=== PATIENT | male | born 1935 | race Caucasian/White ===

== ENCOUNTER → 2017-04-04 | Day surgery (SDC) | payer OTHER ==
[2017-03-22 10:48] VITALS: Ht 172.7 cm; Wt 96.4 kg
[~2017-04-04] VITALS: Ht 172.7 cm; Wt 96.4 kg
[~2017-04-04] MED LIST: 500ML BSS 0.3ML EPI 1:1000PF IRRIG ONE; ACETAMINOPHEN 325 MG TAB PO PRN; ALLO100T PO; AMVISC PLUS 0.8ML SYRINGE INT OCU ONE; ASPCH81X PO; ATROPINE SULFATE 0.1 MG/ML 5ML SYR IV PRN; BSS FLUSH ONE; ENDOCOAT 0.85ML SYRINGE INT OCU ONE; EpHEDrine SULFATE INJ 50 MG/ML AMP IV PRN; EpINEphrine INJ 1MG/ML AMP 1 MG/ML AMP ONE; FAMO20TA11 PO; FENTANYL CITRATE INJ 50 MCG/1 ML 2 ML VIAL ONE; LACTATED RINGER'S 1000ML 500 ML IV SCH; LIDOCAINE 4% OP SOLN DROP CHARGE ONE; LIDOCAINE 4% OP SOLN DROP CHARGE OPL SCH; LIDOCAINE HCL 1% MPF 2 ML VIAL ONE; LISI-725 PO; MIDAZOLAM HCL 1 MG/ML 2ML VIAL ONE; MIX: 4ML BSS 1ML EPI 1:1000 PF TOP ONE; MOXIFLOXACIN OPH SOLN PER DROP CHARGE ONE; POVIDONE-IODINE OP SOLN 30 ML BTL ONE; PROPARACAINE 0.5% OP SOLN PER DROP CHARGE OPL SCH; TAMS0.4C38 PO; TOBRAMYCIN/DEXAMETHASONE OPH OINT PER APPLN CHARGE ONE
[2017-04-04] MEDS: PHENYLEPHRINE HCL 2.5% OP SOLN PER DROP CHARGE OPL SCH ×3 (08:40→08:49)
[2017-04-04] MEDS: TROPICAMIDE 1% OP SOLN PER DROP CHARGE OPL SCH ×3 (08:41→08:51)
[2017-04-04] MEDS: CYCLOPENTOLATE HCL 1% OP SOLN PER DROP CHARGE OPL SCH ×3 (08:42→08:52)
[2017-04-04] MEDS: MOXIFLOXACIN OPH SOLN PER DROP CHARGE OPL SCH ×3 (08:43→08:52)
--- NOTE | 2017-04-04 09:00 | History & Physical Bridge - SC ---
H&P Re-Evaluation Bridge Note: I have examined the patient, reviewed the History & Physical and in the interval since the performance of the History & Physical I have noted the following changes of clinical significance: No changes noted
--- NOTE | 2017-04-04 10:08 | [facility] Post Operative Brief Note ---
Immediate Operative Summary Operative Date Apr 04, 2017. Pre-Operative Diagnosis Cataract Left Eye Post-Operative Diagnosis Same Procedure(s) Performed Left Cataract Phacoemulsification With Intraocular Lens Implant Surgeon Dr. Beach Retail Salesman Surgeon(s) None Estimated Blood Loss 0 Findings left cataract Specimens 0 Complication(s) None Disposition
--- NOTE | 2017-04-04 10:09 | [facility] Operative Report ---
Operative Report Date of Service Apr 04, 2017. Operative Report DATE OF OPERATION: 04/04/17 PREOPERATIVE DIAGNOSIS: Senile nuclear cataract, left eye POSTOPERATIVE DIAGNOSIS: Senile nuclear cataract, left eye PROCEDURE PERFORMED: Phacoemulsification with intraocular lens implantation, left eye SURGEON: Dr. Milo Beach ANESTHESIA: Topical with 1% intracameral lidocaine and monitored anesthesia care COMPLICATIONS: None DESCRIPTION OF PROCEDURE: After positively identifying the patient both verbally and by wristband in the preoperative area, the left eye was marked as the operative eye. The patient was then brought back to the operating room by the anesthesia and nursing staff where they were given a drop of Lidocaine and betadine into the operative eye. They were then sterilely prepped and draped in the standard fashion typical for ophthalmic surgery. Steri-strips were placed along the upper eyelids to keep the lashes back, and a lid speculum was placed into the operative eye. At this point, a documented time out was performed with members of the ophthalmology, nursing, and anesthesia staffs all agreeing upon the correct patient, correct location for surgery, correct procedure, and correct type and power of intraocular lens to be implanted. The microscope was then swung into position. First, a paracentesis wound was made using a sideport blade. Then, in sequence, 1% preservative-free lidocaine followed by Endocoat viscoelastic was injected into the anterior chamber. Next , the main incision was made with a keratome blade in triplanar fashion. A sharp cystotome was introduced into the eye and used to create a tear in the anterior capsule, which was directed into a continuous curvilinear capsulorrhexis using Utrata forceps. Hydrodissection was then performed with BSS on a flat-tip cannula. Next, the phacoemulsification handpiece was introduced into the eye and used to remove the nucleus in a [id number] fashion. This was done without complication and then the irrigation-aspiration handpiece was introduced into the eye and used to remove all remaining cortical and epinuclear material. Amvisc was then injected into the anterior chamber as well as into the capsular bag and using the lens injector system, an MX60 22.0 D lens, serial number [id number], and expiration date 11/2019 was injected into the capsular bag and rotated into the correct position. Next, the irrigation- aspiration handpiece was used to remove all remaining Amvisc. BSS was used to hydrate the main wound, and then BSS was injected into the paracentesis site to reach physiologic pressure and then the main wound was checked and found to be watertight. The patient was given drops of Vigamox and Tobradex ointment into the operative eye, and then the surrounding area was cleaned and dried. A clear plastic shield was placed over the eye and the patient was then sat up and taken from the operating room by the anesthesia staff having tolerated the procedure well and suffering no complications. DISPOSITION: The patient was returned to the recovery room in stable condition. I attest to the content of the Intraoperative Record and any orders documented therein. Any exceptions are noted below.
[2017-04-04 10:10] VITALS: TEMP 36.5
--- NOTE | 2017-04-04 10:10 | Discharge Instructions-SurgCtr ---
Discharge Instructions Date of Service Apr 04, 2017. Visit Reason for Visit: Cataract Left Eye Discharge Discharge Diagnosis / Problem: left cataract Discharge Goals Goal(s): Decrease discomfort, Improve function Activity Recommendations Activity Limitations: as noted below Anesthesia . Post Anesthesia Instructions: If you have had General Anesthesia or IV Sedation: * Do not drive today. * Resume driving when surgeon permits. * Do not make important decisions or sign legal documents today. * Call surgeon for: 1. Temperature elevations greater than 101 degrees F. 2. Uncontrollable pain. 3. Excessive bleeding. 4. Persistent nausea and vomiting. 5. Medication intolerance (nausea, vomiting or rash). * For nausea and vomiting use only clear liquids such as: tea, soda, bouillon until nausea subsides, then gradually increase diet as tolerated. * If you have any concerns or questions, call your surgeon's office. If physician is unavailable and it is an emergency, call 911 or go to the nearest emergency room. . Instructions / Follow-Up Instructions / Follow-Up ACTIVITY RECOMMENDATIONS: * Light activities. * You may walk outside, read, watch television. * You may notice redness on the white part of the eye and some blurry vision - this is normal. MEDICATIONS: Resume previous medications unless instructed otherwise by your surgeon. Start all eye drops at 12 pm today: * Eye drops (today): Prednisone - one drop in operative eye every 2 hours while awake Polytrim - one drop in operative eye every 2 hours while awake Bromfenac - one drop in operative eye daily SPECIAL CARE INSTRUCTIONS: * Tape plastic shield over eye to sleep at night. Call your doctor at with any concerns or problems. FOLLOW UP VISIT: Follow-up with Dr Beach at [facility] as scheduled. Diet Recommendations Home Diet: no limitations Procedures Procedures Performed: Left Cataract Phacoemulsification With Intraocular Lens Implant Pending Studies Studies pending at discharge: no Medical Emergencies . Who to Call and When: Medical Emergencies: If at any time you feel your situation is an emergency, please call 911 immediately. . Non-Emergent Contact Non-Emergency issues call your: Surgeon . . "Provider Documentation" section prepared by Milo Beach. .
[2017-04-04 10:29] VITALS: BP 130/84; PULSE 67; O2SAT 96
--- NOTE | 2017-04-04 10:35 | Anesthesiology Progress Note ---
Anesthesia Post Op Note Date & Time Apr 04, 2017 at 10:34 Vital Signs Pain Intensity: 0 Vital Signs Past 12 Hours Date Time Temp Pulse Resp B/P (MAP) Pulse Ox O2 Delivery O2 Flow Rate FiO2 04/04/17 10:29 67 16 130/84 (99) 96 Room Air 04/04/17 10:10 36.5 57 16 154/81 (105) 95 Room Air 04/04/17 08:31 36.5 66 16 133/73 (93) 95 Room Air Notes Mental Status: alert / awake / arousable, participated in evaluation Nausea / Vomiting: adequately controlled Pain: adequately controlled Airway Patency, RR, SpO2: stable & adequate BP & HR: stable & adequate Hydration State: stable & adequate Anesthetic Complications: no major complications apparent Anesthetic Complications: Patient was cooperative during the procedure, but experienced a significant amount of pain not relieved by narcotics during the case. Comfortable in PACU and without complaints. Dr. Beach and patient requesting second eye be done under [place].
== END | disposition home or self-care (01) ==
LOC: X.SURG 08:04
PROVIDERS: ATTEND Ophthalmology
DX: H25.12 Age-related nuclear cataract, left eye (principal); I10 Essential (primary) hypertension; G47.33 Obstructive sleep apnea (adult) (pediatric); M19.90 Unspecified osteoarthritis, unspecified site; Z68.32 Body mass index [BMI] 32.0-32.9, adult; Z90.5 Acquired absence of kidney; Z88.1 Allergy status to other antibiotic agents; Z87.891 Personal history of nicotine dependence; Z90.49 Acquired absence of other specified parts of digestive tract; Z96.652 Presence of left artificial knee joint; Z85.51 Personal history of malignant neoplasm of bladder; Z85.528 Personal history of other malignant neoplasm of kidney; Z85.828 Personal history of other malignant neoplasm of skin; Z98.890 Other specified postprocedural states

== ENCOUNTER 2020-04-05 12:27 | Observation (INO) ==
[~2020-04-05 12:27] MED LIST changes: -500ML BSS 0.3ML EPI 1:1000PF IRRIG ONE; -ACETAMINOPHEN 325 MG TAB PO PRN; -ALLO100T PO; -AMVISC PLUS 0.8ML SYRINGE INT OCU ONE; -ASPCH81X PO; -ATROPINE SULFATE 0.1 MG/ML 5ML SYR IV PRN; -BSS FLUSH ONE; -ENDOCOAT 0.85ML SYRINGE INT OCU ONE; -EpHEDrine SULFATE INJ 50 MG/ML AMP IV PRN; -EpINEphrine INJ 1MG/ML AMP 1 MG/ML AMP ONE; -FAMO20TA11 PO; -FENTANYL CITRATE INJ 50 MCG/1 ML 2 ML VIAL ONE; +HEPARIN (PORCINE) 1000 UNIT/ML 10 ML (CATH LAB USE ONLY) ONE; -LACTATED RINGER'S 1000ML 500 ML IV SCH; -LIDOCAINE 4% OP SOLN DROP CHARGE ONE; -LIDOCAINE 4% OP SOLN DROP CHARGE OPL SCH; -LIDOCAINE HCL 1% MPF 2 ML VIAL ONE; -LISI-725 PO; -MIX: 4ML BSS 1ML EPI 1:1000 PF TOP ONE; -MOXIFLOXACIN OPH SOLN PER DROP CHARGE ONE; +NITROGLYCERIN/D5W 100MCG/ML 20ML SYR ONE; -POVIDONE-IODINE OP SOLN 30 ML BTL ONE; -PROPARACAINE 0.5% OP SOLN PER DROP CHARGE OPL SCH; -TAMS0.4C38 PO; -TOBRAMYCIN/DEXAMETHASONE OPH OINT PER APPLN CHARGE ONE; +fentaNYL citrate 100 MCG/2 ML VIAL ONE; +niCARdipine HCL INJ 2.5 MG/ML 10 ML AMP ONE
--- NOTE | 2020-04-05 12:38 | Emergency Department Note ---
Impression & Plan ST elevation myocardial infarction (STEMI) of inferior wall ED Provider Note NAME: STEVEN REYNA AGE: 85 SEX: M : 1935 ARRIVES VIA: Ambulance INFORMANT: Patient ED PROVIDER(S): Alejandro Rasmussen DO CHIEF COMPLAINT: Chest pain HPI: Patient is an 85-year-old male who presents the ER for chest pain. He has been having exertional shortness of breath which has been present and worsening for several months. He started with chest pain yesterday morning. It is fairly constant. He saw his PCP today. Following having an abnormal EKG he was referred into [facility]. There he was found to have a STEMI. He was given aspirin, nitro and placed on a heparin drip after a bolus of 4000 units. They are initially trying to fly him to [facility] but due to weather they tried to transport via ground. He became chest pain-free and started hav ing chest pain again. Consequently called [facility] and he was accepted here in transfer by myself in discussion with Dr. Menendez. Pain is currently a 0 out of 10. Here he received 180 of Brilinta. ROS: See above HPI for pertinent positives & negatives. A total of 10 systems reviewed and were otherwise negative. PAST MEDICAL HISTORY:See Below PAST SURGICAL HISTORY:See Below FAMILY HISTORY:See Below SOCIAL HISTORY:See Below HOME MEDICATIONS:See Below ALLERGIES:See Below VITALS:See Below PHYSICAL EXAMINATION: GENERAL: Sitting up in bed, alert, well appearing, well nourished, no distress, non-toxic EYE EXAM: normal conjunctiva. OROPHARYNX: no exudate, no erythema, lips, buccal mucosa, and tongue normal and mucous membranes are moist NECK: supple, no nuchal rigidity, no adenopathy, non-tender LUNGS: Clear to auscultation. Normal chest wall mechanics HEART: no murmurs, S1 normal and S2 normal ABDOMEN: abdomen soft, non-tender, normo-active bowel sounds, no masses, no rebound or guarding. BACK: Back is symmetrical on inspection and there is no deformity, no midline tenderness, no CVA tenderness. SKIN: no rashes and no bruising UPPER EXTREMITIES: upper extremities are grossly normal. LOWER EXTREMITIES: No pitting edema. NEURO EXAM: Normal sensorium, cranial nerves II-XII grossly intact, normal speech, no gross weakness of arms, no gross weakness of legs. MEDICAL DECISION MAKING: Patient is a 5-year-old male who presented to the PCPs office for chest pain which started yesterday. From there he was transferred to [facility] and diagnosed with a STEMI and placed on heparin drip and bolus. [employer] was called and they attempted to fly to [facility] but due to weather was unsuccessful. He was initially chest pain-free and they were going to go by ambulance. He started having chest pain again and consequently they called our ER. I accepted the patient in transfer as our proximity was closer. I called Dr. Hare and prior to the patient's arrival we reviewed EKGs. STEMI alert was called. Upon arrival IV was established blood work is obtained. Labs showed no significant leukocytosis or anemia. INR was unremarkable. PTT was elevated at 78. BMP was unremarkable and troponin here was negative. It was positive at [facility] at 25. These labs did not result until the patient was already in the [facility]. Patient was already given Brilinta prior to arrival. Patient was taken emergently to the [facility] with her chest x-ray and additional blood work was obtained. Dr. Hare did evaluate him at bedside. Triage Nursing notes reviewed. Prior medical records reviewed Vital Signs: reviewed and remarkable for no significant abnormalities Differential diagnosis: Differential diagnoses includes but is not limited to acute coronary syndrome, myocardial infarction, pericarditis, pulmonary embolus, aortic dissection, pneumonia, pneumothorax, musculoskeletal, shingles, esophageal. ER treatment provided: See below Diagnostics interpreted by me: ECG: Sinus rhythm rate of [address] segment elevations in the inferior leads ST segment changes in the septal leads T wave flattening in aVL Normal QTC Cardiac Monitoring: An order was placed for continuous cardiac monitoring. The monitor shows a rate of 72 with sinus rhythm. Laboratory studies: As stated above and show below. Imaging studies: See below Consultation(s): Discussed with Dr. Hare prior to arrival reviewed EKG and was in agreement with STEMI alert [facility]. ED COURSE: Procedures: none Critical Care: I have personally spent 40 minutes of critical care time in the direct management of this patient. This includes bedside care, interpretation of diagnostic studies, and testing, discussion with consultants, patient, and family members, and other required patient management activities. This 40 minutes is in excess of all separately billable procedures. Past Med/Surg History Social History Smoking Status: Former smoker Feels Safe at Home: Yes Allergies Allergies Allergy/AdvReac Type Severity Reaction Status Date / Time Cipro Allergy Unknown LIPS Verified 04/18/17 11:10 ITCHING/TINGLING Home Meds Home Medications Medication Instructions Recorded Confirmed ALLOPURINOL (ZYLOPRIM) 100 mg PO QAM #0 tab 03/22/17 ASPIRIN (ASPIRIN CHEWABLE) 81 mg PO QAM #0 03/22/17 Famotidine (Pepcid) 20 mg PO QAM #0 tab 03/22/17 Lisinopril (Zestril) 20 mg PO QAM #0 tab 03/22/17 TAMSULOSIN HCL (FLOMAX) 0.4 mg PO QAM #0 cap 03/22/17 Results & Data (ED) Vital Signs Vital Signs - 24 hr 04/05/20 12:31 04/05/20 13:35 Temperature 36.9 C Temperature Source Oral Pulse Rate 74 Pulse Rate [Apical] 71 Respiratory Rate 16 16 Respiratory Effort / Characteristics Non-Labored Respiratory Depth Normal Respiratory Pattern Regular Blood Pressure 125/81 Blood Pressure [Left Arm] 141/98 H Blood Pressure Mean 95 Blood Pressure Mean [Left Arm] 112 Blood Pressure Position [Left Arm] Sitting Pulse Oximetry 96 97 Oxygen Delivery Method Room Air Room Air Sepsis Recent Fever Within 48 Hours No Sepsis New/Unexplained Change in Mental Status N/A Sepsis Action Taken by Nursing No Action Required Laboratory Data Result diagrams: 04/05/20 12:40 04/05/20 12:40 Lab Results 04/05/20 04/05/20 04/05/20 Range/Units 12:40 12:40 12:40 WBC 8.96 (4.8-10.8) K/uL RBC 5.11 (4.7-6.1) M/uL Hgb 15.1 (14.0-18.0) g/dL Hct 44.7 (42-52) % MCV 87.5 (80-100) fL MCH 29.5 (25-34) pg MCHC 33.8 (32-36) g/dL RDW Std Deviation 44.7 (36.4-46.3) fL RDW Coeff of Esthela 13.9 (11.5-14.5) % Plt Count 194 (130-400) K/uL MPV 10.0 (7.4-10.4) fL Immature Gran % (Auto) 0.3 % Neut % (Auto) 66.5 % Lymph % (Auto) 20.6 % Laurens % (Auto) 9.7 % Eos % (Auto) 2.7 % Baso % (Auto) 0.2 % Neut # (Auto) 5.95 (1.4-6.5) K/uL Lymph # (Auto) 1.85 (1.2-3.4) K/uL Laurens # (Auto) 0.87 H (0.11-0.59) K/uL Eos # (Auto) 0.24 (0-0.5) K/uL Baso # (Auto) 0.02 (0-0.2) K/uL Immature Gran # (Auto) 0.03 H (0.00-0.02) K/uL PT 11.7 (9.0-12.0) Seconds INR 1.1 (0.9-1.1) APTT 78.6 H* (21.0-31.0) Seconds PTT Ratio 2.8 Sodium 138 (136-145) mmol/L Potassium 4.4 (3.5-5.1) mmol/L Chloride 109 H (98-107) mmol/L Carbon Dioxide 22 (21-32) mmol/L Anion Gap 7.0 (3-11) BUN 20 H (7-18) mg/dl Creatinine 1.49 H (0.6-1.4) mg/dl Est Cr Clr Drug Dosing 43.5 ml/min Est GFR ( Amer) 48.6 Est GFR (Non-Af Amer) 41.9 BUN/Creatinine Ratio 13.7 (10-20) Glucose 114 H (70-99) mg/dl Calcium 10.1 (8.5-10.1) mg/dl Total Bilirubin 0.7 (0.2-1) mg/dl AST 10 L (15-37) U/L ALT 22 (12-78) U/L Alkaline Phosphatase 127 H (45-117) U/L Troponin I < 0.015 (0-0.045) ng/ml Total Protein 7.2 (6.4-8.2) gm/dl Albumin 3.7 (3.4-5.0) gm/dl Globulin 3.5 (2.5-4.0) gm/dl Albumin/Globulin Ratio 1.1 (0.9-2) Lipase 167 (73-393) U/L Administered Medications Sodium Chloride (Nss 1000ml) 1,000 mls @ 100 mls/hr IV .Q10H [facility] Stop: 04/05/20 23:44 Last Admin: 04/05/20 14:31 Dose: 100 mls/hr Documented by: [id number] Heparin Sodium/Dextrose (Heparin Sodium/Dextrose) 25,000 units in 500 mls @ 31 mls/hr IV .Q16H8M [facility]; Protocol Stop: 05/05/20 13:59 Last Admin: 04/05/20 15:01 Dose: 1,550 units/hr, 31 mls/hr Documented by: [id number] Cosigned by: [id number] Nitroglycerin (Nitroglycerin Sl 0.4 Mg/Tab Tab) 0.4 mg SL PRN PRN PRN Reason: Chest Pain Stop: 05/05/20 13:35 Last Admin: 04/05/20 15:11 Dose: 0.4 mg Documented by: [id number] Discontinued Medications Fentanyl Citrate (Fentanyl Citrate 100 Mcg/2 Ml Vial) Confirm Administered Dose 100 mcg .ROUTE .STK-MED ONE Stop: 04/05/20 12:19 Last Admin: 04/05/20 14:36 Dose: Not Given Documented by: [id number] Heparin Sodium (Porcine) (Heparin (Porcine) 1000 Unit/Ml 10 Ml ([facility] Use Only)) Confirm Administered Dose 10,000 units .ROUTE .STK-MED ONE Stop: 04/05/20 12:19 Last Admin: 04/05/20 14:36 Dose: Not Given Documented by: [id number] Heparin Sodium/Sodium Chloride (Heparin In Nss Infusion 1000 Unit/500 Ml (2 U/Ml ) Bag) Confirm Administered Dose 3,000 units IV .STK-MED ONE Stop: 04/05/20 12:20 Last Admin: 04/05/20 14:36 Dose: Not Given Documented by: [id number] Midazolam HCl (Midazolam Hcl 1 Mg/Ml 2ml Vial) Confirm Administered Dose 2 mg .ROUTE .STK-MED ONE Stop: 04/05/20 12:20 Last Admin: 04/05/20 14:36 Dose: Not Given Documented by: [id number] Morphine Sulfate (Morphine Sulfate 2 Mg/Ml Carp) Confirm Administered Dose 2 mg .ROUTE .STK-MED ONE Stop: 04/05/20 14:56 Last Admin: 04/05/20 15:08 Dose: 2 mg Documented by: [id number] Nicardipine HCl (Nicardipine Hcl Inj 2.5 Mg/Ml 10 Ml Amp) Confirm Administered Dose 25 mg .ROUTE .STK-MED ONE Stop: 04/05/20 12:19 Last Admin: 04/05/20 14:36 Dose: Not Given Documented by: [id number] Nitroglycerin/Dextrose (Nitroglycerin/D5w 100mcg/Ml 20ml Syr) Confirm Administered Dose 2,000 mcg .ROUTE .STK-MED ONE Stop: 04/05/20 12:20 Last Admin: 04/05/20 14:36 Dose: Not Given Documented by: [id number] Discharge Plan Visit Data Chief Complaint: Heart Alert ED Provider: Alejandro Rasmussen Discharge Problem: ST elevation myocardial infarction (STEMI) of inferior wall Discharge Instructions Interventions: ED Discharge Assessment Last Done: 04/05/20 12:43
--- NOTE | 2020-04-05 12:45 | Pre Anesthesia Assessment ---
Date of Service April 05, 2020 Pre Sedation Assessment Vital Signs Temp Pulse Resp BP Pulse Ox 04/05/20 12:31 98.4 F 74 16 125/81 96 Cardiovascular RRR, no murmur, no edema Respiratory normal respiratory effort, lungs clear to auscultation Pre-Sedation Airway Assessment Smoking Status: Former smoker Hx Sleep Apnea: No Hx Difficult Intubation: No Short, Thick Neck: No Thyromental Distance: > or= 3.5 Finger Breadths Oral Cavity: + WNL Mallampati Class: III ASA: ASA3 Procedure Planning Contraindications for Sedation: none Current Medications Reviewed: Yes Notes The planned sedation has been discussed with the patient. Informed Consent was obtained. I have identified the patient, determined the appropriateness of sedation and have assessed the patient immediately prior to the procedure. All medicine(s) and interventions are by my order.
--- NOTE | 2020-04-05 12:48 | Cardiology Consultation ---
Date of Consultation April 05, 2020 Assessment & Plan (1) ST elevation myocardial infarction (STEMI) of inferior wall: Presentation consistent with inferior STEMI and recommend proceeding with emergent cardiac catheterization and likely primary PCI. No apparent contraindications to procedure. Discussed risks, benefits, alternatives of procedure with patient and they are willing to proceed. Given IV heparin and ticagrelor 180 mg in route. Further recommendations pending findings of coronary angiography. History of Present Illness History of Present Illness 85-year-old man here with acute chest pain and ECG concerning for acute FL. Patient initially presented to [facility]. Transferred emergently to [facility] after inferior ST elevations recognized on ECG. Past cardiac history remarkable for what sounds to be SVT ablation x2 most recently in 2007. Reports undergoing a stress test earlier this year which was negative per patient. Cardiac risk factors include remote tobacco use, hypertension. Other medical issues include GERD and history of renal cancer post nephrectomy. Chest pain began yesterday around 9 AM, more than 24 hours ago. Pain has been intermittent since that time associated with shortness of breath. Had difficulty sleeping overnight and due to persistent pain this morning contacted EMS. Denies similar symptoms in the past. Pain resolved with single nitroglycerin. Chest pain-free at time of interview. Hemodynamically stable. EKG again showed sinus rhythm with inferior ST elevations. Allergies Allergy/AdvReac Type Severity Reaction Status Date / Time Cipro Allergy Unknown LIPS Verified 04/18/17 11:10 ITCHING/TINGLING Home Medications Home Medications Medication Instructions Recorded Confirmed Type ALLOPURINOL (ZYLOPRIM) 100 mg PO QAM #0 tab 03/22/17 History ASPIRIN (ASPIRIN CHEWABLE) 81 mg PO QAM #0 03/22/17 History Famotidine (Pepcid) 20 mg PO QAM #0 tab 03/22/17 History Lisinopril (Zestril) 20 mg PO QAM #0 tab 03/22/17 History TAMSULOSIN HCL (FLOMAX) 0.4 mg PO QAM #0 cap 03/22/17 History Patient History Social History Smoking Status: Former smoker Feels Safe at Home: Yes Review of Systems Review of Systems: All systems reviewed & are unremarkable except as noted in HPI & below Physical Exam Physical Exam: General: Comfortable, no acute distress HEENT: Sclerae anicteric, mucous membranes moist Lungs: Clear to auscultation bilaterally, no rhonchi or wheezes Cardiac: Regular rate and rhythm, no murmurs. Abdomen: Soft, nontender, nondistended, positive bowel sounds. Extremities: Warm, well perfused, no edema. 2+ radial pulses Skin: No rashes or lesions. Neuro: Nonfocal Psych: Alert orient x3, normal affect and mood Results & Data ([facility]) Vital Signs (Past 12 Hours) Vital Signs Temp Pulse Resp BP Pulse Ox 04/05/20 12:31 98.4 F 74 16 125/81 96 PG Care Time/CCT Total # of Minutes Spent Total Time Spent with Patient: Total time spent is greater than 50% in coordination of care (as documented) at patient's floor/unit and/or counseling patient: Coding Level of Care Code 44865 Initial Inpt Care Lvl [address] elevation myocardial infarction (STEMI) of inferior wall I21.19
--- NOTE | 2020-04-05 12:50 | XRay Report ---
XR chest 1V portable CLINICAL HISTORY: Atypical chest pain COMPARISON STUDY: No previous studies for comparison. FINDINGS: The cardiac and mediastinal contours are normal. There is no evidence of focal pulmonary co nsolidation. There is no evidence of failure. No pleural effusions are visualized.[ IMPRESSION: No active disease in the chest. ACT 112: Negative or not required by law. Electronically signed by: Javid Wright M.D. 04/05/2020 12:49 PM
[2020-04-05 12:54] LABS: Basophils # (auto) 0.02 K/uL (0-0.2); Basophils % (auto) 0.2 %; Eosinophils # (auto) 0.24 K/uL (0-0.5); Eosinophils % (auto) 2.7 %; Hematocrit (blood only) 44.7 % (42-52); Hemoglobin 15.1 g/dL (14.0-18.0); Immature Granulocytes # (auto) 0.03 K/uL (0.00-0.02); Immature Granulocytes % (auto) 0.3 %; Lymphocytes # (auto) 1.85 K/uL (1.2-3.4); Lymphocytes % (auto) 20.6 %; Mean Corpuscular Hemoglobin 29.5 pg (25-34); Mean Corpuscular Hgb Conc 33.8 g/dL (32-36); Mean Corpuscular Volume 87.5 fL (80-100); Monocytes # (auto) 0.87 K/uL (0.11-0.59); Monocytes % (auto) 9.7 %; Neutrophils # (auto) 5.95 K/uL (1.4-6.5); Neutrophils % (auto) 66.5 %; Platelet Count 194 K/uL (130-400); RDW Coefficient of Variation 13.9 % (11.5-14.5); RDW Standard Deviation 44.7 fL (36.4-46.3); Red Blood Count 5.11 M/uL (4.7-6.1); White Blood Count 8.96 K/uL (4.8-10.8)
[2020-04-05 13:17] LABS: Alanine Aminotransferase 22 U/L (12-78); Albumin Level 3.7 gm/dl (3.4-5.0); Aspartate Aminotransferase 10 U/L (15-37); BUN Creatinine Ratio 13.7 (10-20); Blood Urea Nitrogen 20 mg/dl (7-18); Calcium 10.1 mg/dl (8.5-10.1); Carbon Dioxide 22 mmol/L (21-32); Chloride 109 mmol/L (98-107); Creatinine Clr Calc Pharmacy 43.5 ml/min; Est GFR (African American) 48.6; Est GFR (Non-African American) 41.9; Glucose 114 mg/dl (70-99); INR 1.1 (0.9-1.1); Lipase 167 U/L (73-393); Partial Thromboplastin Ratio 2.8; Potassium 4.4 mmol/L (3.5-5.1); Prothrombin Time 11.7 Seconds (9.0-12.0); Sodium 138 mmol/L (136-145)
[2020-04-05 13:24] LABS: Albumin Globulin Ratio 1.1 (0.9-2); Alkaline Phosphatase 127 U/L (45-117); Bilirubin,Total 0.7 mg/dl (0.2-1); Globulin 3.5 gm/dl (2.5-4.0); Total Protein 7.2 gm/dl (6.4-8.2); Troponin I < 0.015 ng/ml (0-0.045)
[2020-04-05 13:27] LABS: Partial Thromboplastin Time 78.6 Seconds (21.0-31.0)
[2020-04-05] MEDS ORDERED: ONDANSETRON INJ 2 MG/ML 2 ML VIAL IV PRN (13:36)
[2020-04-05] MEDS ORDERED: NITROGLYCERIN SL 0.4 MG/TAB TAB SL PRN (13:36)
--- NOTE | 2020-04-05 13:36 | Post Anesthesia Assessment ---
Date of Service April 05, 2020 Post Sedation Assessment Vital Signs Temp Pulse Resp BP Pulse Ox 04/05/20 12:31 98.4 F 74 16 125/81 96 Recovery Score Activity: Moves 4 extremities Respiration: Deep Breath/Cough Circulation: +/-20% PreAnes Value Consciousness: Fully Awake Oxygen Saturation: O2 needed for >90% Discharge Sedation Level of Care: Fast Track Phase II Post Sedation Plan On clinical assessment, the patient appears to have tolerated the sedation without complications. Patient is recovering as anticipated. Patient will continue to be monitored by nursing and may be discharged when sedation discharge criteria are met per below protocol. Upon Completions of procedure up to 15 minutes continue every 5 minute vital signs and the P.A.R. score; then discharge to a Phase I or Fast Track to Phase II per the following guidelines: * Discharge Patient to appropriate Phase II area if PAR is 8 or greater or return to pre- procedure baseline. The post - procedure orders will be as directed. * If PAR score is less than 8 or not return to pre-procedure baseline then patient will follow Phase I monitoring till PAR is reached for Phase II. The Phase I may be done in procedure room or may call to secure a Phase I area. * If naloxone or flumazenil are used for reversal, hold in Phase I for continued monitoring from when last reversal dose was given for a minimum of 60 minutes or longer pending the nurse and/or physician discretion of patient condition before discharge to Phase II. Please call the Sedation Physician to re-evaluate and complete post-note for discharge to Phase II area. Do NOT discharge from procedure sedation or Phase 1 until post- sedation evaluation note is complete by procedure /sedation MD Sedation Discharge Instructions to be given to the patient at discharge to home.
--- NOTE | 2020-04-05 13:54 | Cardiac Catheterization ---
[facility] Data: [employer] Burner Cardiac Status Clinical evaluation leading to the procedure CAD Presenation: STEMI Anginal Classification: CCS IV Heart Failure: No Cardiogenic Shock within 24 Hours: No Cardiac Arrest within 24 Hours: No Imaging Studies Past 6 Months: No Stress Studies Past 6 Months: No Diagnostic Physicians Name: Roman Hare MD Status: Emergency Closure Device Percutaneous Entry Location: Radial Closure Device: Radial Band Recommendations: Medical Therapy and/or Counseling Intraprocedure Events Significant Disection: No Perforation: No Cardiac Cath Procedure Full Procedure Date April 05, 2020 Pre-Procedure Diagnosis Pre-Procedure Diagnosis: STEMI and Angina AUC Score AUC Score: 9 Post-Procedure Diagnosis Post-Procedure Diagnosis: Moderate CAD and Normal Intracardiac Pressures Procedure(s) Performed Procedure(s) Performed: Coronary Angiography, Left Heart Cath and IVUS Logger Driving Horses Roman Hare MD Restaurant Greeter(s) Kai Estimated Blood Loss Estimated Blood Loss: 10 Medication(s) Medication(s): Fentanyl, Heparin, Lidocaine 1%, Nicardipine, Nitroglycerin and Versed Summary of Findings Indication: Suspected inferior STEMI Access: 6 Fr right radial artery Catheters: Ik[place] left 3.5 guide Findings: LM -Short, no significant disease LAD -medium caliber vessel, 40 to 50% proximal stenosis, 30% mid segment stenosis with myocardial bridging, small distal vessel with luminal irregularities and WU II flow. Small first diagonal with moderate diffuse disease. D2 without disease. Circumflex -large caliber, mid segment luminal irregularities, OM 2 and OM 3 without significant disease. RCA -large caliber vessel, mid segment luminal irregularities. Right PDA with WU-3 flow 20 to 30% proximal disease. LVEDP -14 Initial concern for occlusion of right PAV after takeoff of PLB2. - Probed distal aspect of PAV with whisper/ship pilot 50 wire and no evidence of occlusion. - IVUS performed of LAD - Crossband Layer 50 wire placed into distal LAD - [place] IVUS pullback revealed minimal mid segment disease. 50-60% proximal stenosis (minimally calcified, no thrombus). - Post IVUS angiography revealed no apparent complications. Arterial Closure: TR band Summary: 1. Moderate non-obstructive coronary artery disease - 50-60% proximal LAD (by IVUS). 2. Normal intracardiac filling pressure Recommendations: Post procedure patient chest pain free. Cannot rule out transient thrombosis with re-established flow or ostial occlusion of small a branch vessel. Continue heparin infusion overnight when TR Band removed. Trend troponin until peak. Check echocardiogram ASCVD risk factor modification including statin, aspirin in the setting of moderate disease. Hemodynamics Rest Ao:: 117/61/86 Final Ao: 126/72/95 LV: 120/14 Recommendations Recommendations: Medical Therapy and/or Counseling Specimens Specimens: None Radiation Exposure (mGy) 2059 Contrast (mls) 110 Fluids (cc crystalloids) Fluids (cc crystalloids): 70 Drains Drains: none Anesthesia moderate Procedural Complication(s) None Disposition PCU I attest to the content of the Intraoperative Record and any orders documented therein. Any exceptions are noted below. [facility] Card Cath Procedure Codes Cardiac Catheterization Procedure 1: Cardiovascular Cath Procedures: 16114 Coronaries and LHC (+/-LV) Therapeutic Services & Ancillary Proc Procedure 1: Cardiovascular Tx and Anc Procedures: 38263 IV Ultrasound (Coronary or Graft) Moderate Sedation Procedure 1: Sedation/Anesthesia: 46333 Mod Sedation by the same physician;Init15 Min Child Age 5 & Up Procedure 2: Sedation/Anesthesia: 59888 Mod Sedation by the same physician; Ea [id number] Minutes PG Care Time/CCT Total # of Minutes Spent Total Time Spent with Patient: Total time spent is greater than 50% in coordination of care (as documented) at patient's floor/unit and/or counseling patient:
[2020-04-05] MEDS ORDERED: Heparin IV Standard *NO* Bolus IV SCH (14:00)
--- NOTE | 2020-04-05 14:21 | History & Physical Report ---
Date of Service April 05, 2020 Assessment & Plan (1) S/P cardiac catheterization: (2) CAD (coronary artery disease): This is an 85yo M with a PMH of paroxysmal atrial tachycardia, HTN, CKD III, prediabetes, h/o renal cancer s/p nephrectomy, GERD, BPH and other medical problems listed below who was transferred from [facility] to [facility] for suspected inferior STEMI. -Underwent cardiac cath for suspected inferior MT and found to have moderate non-obstructive coronary artery disease with 50-60% proximal LAD (by IVUS). Normal intracardiac filling pressure. No PCI -Transferred to PCU for overnight observation -Did develop recurrent chest pain post cath that resolved with SL ntg and morphine. Repeat EKG with NSR. Underwent stat chest CTA with no evidence of thoracic aortic aneurysm,dissection or acute pulmonary embolism -Per Dr. Hare, * Cannot rule out transient thrombosis with re-established flow or ostial occlusion of small a branch vessel * Continue heparin infusion overnight when TR Band removed * Trend troponin until peak. * Check echocardiogram * ASCVD risk factor modification including statin, aspirin in the setting of moderate disease (3) CKD (chronic kidney disease), stage III: Creatinine 1.49 (baseline ~1.4). Continue IV resuscitation after receiving contrast dye today (4) Paroxysmal atrial tachycardia: Continue metoprolol (5) HTN (hypertension): Normotensive. Continue metoprolol (6) AAA (abdominal aortic aneurysm): Per CT abdomen/pelvis from the summer, AAA 4.7 cm (7) GERD (gastroesophageal reflux disease): Continue PPI (8) BPH (benign prostatic hyperplasia): Continue tamsulosin and finasteride DVT Ppx: Receiving IV heparin Code status: DNR per discussion with patient PCP: RENÉ Arriaza Dispo: Observation PCU. Plan to return home once medically stable Patient seen in collaboration with Dr. Soria. Please see addendum. History of Present Illness Chief Complaint: STEMI Primary Care Provider: Sergei Trujillo MD This is an 85yo M with a PMH of paroxysmal atrial tachycardia, HTN, CKD III, prediabetes, h/o renal cancer s/p nephrectomy, GERD, BPH and other medical problems listed below who was transferred from [facility] to [facility] for STEMI. Patient had been having chest pain since yesterday morning that was intermittent with associated shortness of breath and pre-syncope. Pain persisted overnight and therefore contacted EMS. EKG at [place] showed sinus rhythm with inferior ST elevations. Once transferred to [facility], patient was taken to manufacturing lab technician but no significant stenosis was seen in coronaries so no PCI performed. Patient was transferred to PCU for continued monitoring. Around time of evaluation in 239-2 at 1500, chest discomfort had returned with pain between shoulder blades and associated shortness of breath and rigors. Received SL nitro x 1 and morphine. Repeat EKG with normal sinus, felt significantly improved after medication. Still has mild chest discomfort with deep inspiration. Was evaluated at bedside by Dr. Hare at this time as well. Going for CTA chest to rule out dissection. Allergies Allergy/AdvReac Type Severity Reaction Status Date / Time Cipro Allergy Unknown LIPS Verified 04/18/17 11:10 ITCHING/TINGLING Home Medications Home Medications Medication Instructions Recorded Confirmed Type albuterol sulfate 2 inh INHALATION QID PRN 04/05/20 04/05/20 History allopurinol 100 mg PO DAILY 04/05/20 04/05/20 History atorvastatin 20 mg PO HS 04/05/20 04/05/20 History carboxymethylcellulose sodium 1 drp OPHTHALMIC (EYE) TID PRN 04/05/20 04/05/20 History [Artificial Tears (cmc)] finasteride 5 mg PO DAILY 04/05/20 04/05/20 History fluticasone propionate [Flonase] 1 spray INTRANASAL BID 04/05/20 04/05/20 History losartan 25 mg PO DAILY 04/05/20 04/05/20 History pantoprazole 20 mg PO DAILY 04/05/20 04/05/20 History tamsulosin 0.4 mg PO DAILY 04/05/20 04/05/20 History Past Med/Surg History Medical History (Updated 04/05/20 @ 16:37 by Rebeca Whyte PA-C) AAA (abdominal aortic aneurysm) BPH (benign prostatic hyperplasia) CAD (coronary artery disease) CKD (chronic kidney disease), stage III GERD (gastroesophageal reflux disease) HTN (hypertension) Paroxysmal atrial tachycardia Prediabetes Surgical History (Updated 04/05/20 @ 16:23 by Rebeca Whyte PA-C) History of cholecystectomy History of nephrectomy History of tonsillectomy Family History Other Heart disease Stroke Social History (Updated 04/05/20 @ 16:10 by Rebeca Whyte PA-C) Smoking Status: Former smoker Smoking End Date: 1967; Hx Alcohol Use: No Hx Substance Use: No Feels Safe at Home: Yes Review of Systems Review of Systems: At least ten systems reviewed and negative except as noted in the HPI. Physical Exam Physical Exam: General Appearance: vitals as above, lying in bed, initially in distress from CP but improved after ntg, conversing normally Head: normocephalic, atraumatic Eyes: normal inspection, PERRL, conjunctivae normal, anicteric sclerae ENT: external ear and nose normal, oropharynx normal, wearing oxymask Neck: normal visual inspection, trachea midline, no thyromegaly Respiratory: normal respiratory effort, lungs clear to auscultation, no wheeze, rales, rhonchi. No accessory muscle use Cardiovascular: regular rate, rhythm, no murmur appreciated, normal peripheral pulses, no BLE edema. Vessels: no JVD Chest: normal inspection of chest Abdomen/GI: normal bowel sounds, soft, nontender, no hepatosplenomegaly Extremities/Musculoskeletal: no cyanosis or clubbing, extremities motor strength 5/5. + Radial band in place Neurologic: PERRL, EOMI, accommodation nl, no face palsy, no dysarthria, CN's II-XI intact bilaterally and moves all extremities Psychiatric: A+Ox3, euthymic affect Skin: no rashes, normal color, warm/dry Results & Data Results & Data ([facility]) Vital Signs (Past 12 Hours) Vital Signs Temp Pulse Pulse Resp BP BP Pulse Ox 04/05/20 14:06 36.6 C 68 20 126/65 96 04/05/20 13:49 71 16 117/73 97 04/05/20 13:35 71 16 141/98 H 97 04/05/20 12:31 36.9 C 74 16 125/81 96 Laboratory Results Short CBC 04/05/20 Range/Units 12:40 WBC 8.96 (4.8-10.8) K/uL Hgb 15.1 (14.0-18.0) g/dL Hct 44.7 (42-52) % Plt Count 194 (130-400) K/uL BMP 04/05/20 12:40 Sodium 138 Potassium 4.4 Chloride 109 H Carbon Dioxide 22 BUN 20 H Creatinine 1.49 H Glucose 114 H Calcium 10.1 Cardiac Enzymes 04/05/20 Range/Units 12:40 Troponin I < 0.015 (0-0.045) ng/ml Liver Function 04/05/20 Range/Units 12:40 Total Bilirubin 0.7 (0.2-1) mg/dl AST 10 L (15-37) U/L ALT 22 (12-78) U/L Alkaline Phosphatase 127 H (45-117) U/L Albumin 3.7 (3.4-5.0) gm/dl Diagnostic Findings CXR: IMPRESSION: No active disease in the chest. Chest CTA: IMPRESSION: 1. No acute intrathoracic findings 2. No evidence of thoracic aortic aneurysm or dissection 3. No evidence of acute pulmonary embolism 4. 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 ECG Rhythm: normal sinus Code Status & VTE Plan VTE Prophylaxis Plan VTE Prophylaxis will be ordered: Yes Supervising Physician Co-Signing Physician Notes Attending Addendum: care coordinated with JEANIE Whyte please refer to her notes for full details, I agree with her notes patient seen and examined, records reviewed by myself as well on exam, patient seen resting in bed, not in distress, somewhat anxious already received a dose of nitroglycerin sublingual, states chest pain is almost resolved now Denies shortness of breath, palpitations, dizziness, nausea vomiting Repeat EKG sound, no signs of acute ischemia or infarct Blood pressure and heart rate stable, O2 saturation more than 90% no other symptoms VS noted and reviewed oriented x 3 , not in distress, speaks in sentences with no effort nor accessory muscle use normal rate, regular rhythm, no murmurs clear breath sounds bilaterally non distended, soft, nontender no bipedal edema, erythema, warmth no neuro deficits WBC 8.9 Hg 15.1 Crea 1.4 ASSESSMENT AND PLAN Chest pain, suspected ST elevation MT Troponin less than 0.01 Status post cardiac cath 04/05/2020: moderate non-obstructive coronary artery disease with 50-60% proximal LAD (by IVUS). Normal intracardiac filling pressure. No PCI Developed chest pain after cardiac cath CT angiogram negative for dissection or PE Per Dr. Roman Hare, patient may have had transient thrombosis Heparin drip to be continued for now Hypertension Stable Continue metoprolol other diagnoses and plan of care as per JEANIE Whyte's notes Serafin Soria MD
[2020-04-05] MEDS: SODIUM CHLORIDE 0.9% 1000ML 1,000 ML IV SCH ×2 (14:31→23:37)
[2020-04-05] MEDS ORDERED: MoRPHine SULFATE 2 MG/ML CARP IV PRN (14:47)
[2020-04-05] MEDS ORDERED: MoRPHine SULFATE 2 MG/ML CARP ONE (14:55)
[2020-04-05] MEDS: HEPARIN SODIUM/DEXTROSE 25,000 UNITS/500 ML BAG IV SCH (15:01)
--- NOTE | 2020-04-05 15:55 | CT Scan Report ---
CT ANGIOGRAPHY THE CHEST WITHOUT AND WITH CONTRAST CLINICAL HISTORY: chest pain, radiating to the back COMPARISON STUDY: Chest x-ray dated 04/05/2020 TECHNIQUE: Unenhanced images were obtained through the thorax. CT angiography of the chest was then p erformed Following the IV administration of 121 mL of Optiray-320, CT of the thorax was performed fro m the thoracic inlet to the lung bases. Images are reviewed in the axial, sagittal, and coronal plane s. IV contrast was administered without complication. MIP images were acquired. A dose lowering techn ique was utilized adhering to the principles of ALARA. CT DOSE: 1342.01 mGy.cm FINDINGS: Thyroid: Imaged portions of the thyroid gland are normal in appearance. Thoracic aorta: Noncontrast images reveal no evidence of acute thoracic hematoma. Postcontrast images reveal no evidence of thoracic aortic dissection. There are mild atheromatous changes present within the aortic arch. There is no evidence of aneurysmal dilatation. Pulmonary vasculature: The pulmonary trunk is normal in caliber. There are no central filling defects identified to suggest pulmonary embolus. Note that this examination was not protocoled for the evalu ation of pulmonary emboli. HEART: The heart is normal in size and configuration, without pericardial effusion. Lungs and pleural spaces: There is no pneumothorax. There are no significant pleural effusions. There is no focal pulmonary consolidation. Mediastinum: There is no evidence of pathologic mediastinal lymphadenopathy Sana: There is no evidence of pathologic hilar adenopathy Axilla: There is no evidence of axillary lymphadenopathy Upper abdomen: There are multiple hypodense hepatic lesions likely representing cysts Skeletal structures: There are no lytic or blastic osseous lesions. IMPRESSION: 1. No acute intrathoracic findings 2. No evidence of thoracic aortic aneurysm or dissection 3. No evidence of acute pulmonary embolism 4. 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 Electronically signed by: Javid Wright M.D. 04/05/2020 3:53 PM
--- NOTE | 2020-04-05 16:21 | XCELERA ---
[id number]
[2020-04-05] MEDS: COLCHICINE 0.6 MG TAB PO SCH ×2 (16:59→21:04)
[2020-04-05] MEDS ORDERED: ALBUTEROL HFA 8 GM INHALER INH PRN (17:09)
[2020-04-05] MEDS ORDERED: ARTIFICIAL TEARS OP PRN (17:12)
[2020-04-05] MEDS: FLUTICASONE PROPIONATE NA SPR 16 GM BTL NAE SCH (21:03)
[2020-04-05] MEDS: METOPROLOL TARTRATE 25 MG TAB PO SCH (21:04)
[2020-04-05 22:26] LABS: Partial Thromboplastin Ratio > 5.0
[2020-04-05 22:30] LABS: Partial Thromboplastin Time > 139.0 Seconds (21.0-31.0)
[2020-04-05 23:57] LABS: Partial Thromboplastin Ratio 4.9
[2020-04-05 23:59] LABS: Partial Thromboplastin Time 136.1 Seconds (21.0-31.0)
[2020-04-06 00:54] LABS: Partial Thromboplastin Ratio 2.8
[2020-04-06 00:58] LABS: Partial Thromboplastin Time 78.8 Seconds (21.0-31.0)
--- NOTE | 2020-04-06 05:31 | Electrocardiogram Report ---
Test Reason : Blood Pressure : / mmHG Vent. Rate : 070 BPM Atrial Rate : 070 BPM P-R Int : 192 ms QRS Dur : 100 ms QT Int : 362 ms P-R-T Axes : 000 015 070 degrees QTc Int : 390 ms Normal sinus rhythm ST elevation consider inferior injury or acute infarct ACUTE ND / STEMI Abnormal ECG No previous ECGs available Confirmed by Steven De La Fuente ([id number]) on 04/06/2020 5:31:36 AM Referred By: REFERRED SELF Confirmed By:Steven De La Fuente
[2020-04-06 07:17] LABS: Basophils # (auto) 0.02 K/uL (0-0.2); Basophils % (auto) 0.3 %; Eosinophils # (auto) 0.32 K/uL (0-0.5); Eosinophils % (auto) 4.6 %; Hematocrit (blood only) 39.7 % (42-52); Hemoglobin 13.4 g/dL (14.0-18.0); Immature Granulocytes # (auto) 0.03 K/uL (0.00-0.02); Immature Granulocytes % (auto) 0.4 %; Lymphocytes % (auto) 18.7 %; Mean Corpuscular Hemoglobin 29.5 pg (25-34); Mean Corpuscular Hgb Conc 33.8 g/dL (32-36); Mean Corpuscular Volume 87.4 fL (80-100); Mean Platelet Volume 9.6 fL (7.4-10.4); Monocytes # (auto) 0.83 K/uL (0.11-0.59); Monocytes % (auto) 11.9 %; Neutrophils # (auto) 4.47 K/uL (1.4-6.5); Neutrophils % (auto) 64.1 %; Platelet Count 160 K/uL (130-400); RDW Coefficient of Variation 14.1 % (11.5-14.5); RDW Standard Deviation 45.3 fL (36.4-46.3); Red Blood Count 4.54 M/uL (4.7-6.1); White Blood Count 6.97 K/uL (4.8-10.8)
[2020-04-06 07:18] VITALS: PULSE 72; TEMP 98.1
[2020-04-06 07:23] LABS: Estimated Average Glucose 126 mg/dl
[2020-04-06 07:38] LABS: Partial Thromboplastin Ratio 3.9
[2020-04-06 07:42] LABS: Partial Thromboplastin Time 107.9 Seconds (21.0-31.0)
[2020-04-06 07:51] LABS: BUN Creatinine Ratio 13.7 (10-20); Calcium 8.8 mg/dl (8.5-10.1); Est GFR (African American) 50.6; Est GFR (Non-African American) 43.7
[2020-04-06] MEDS: METOPROLOL TARTRATE 25 MG TAB PO SCH (08:39)
[2020-04-06] MEDS: FLUTICASONE PROPIONATE NA SPR 16 GM BTL NAE SCH (08:40)
[2020-04-06] MEDS ORDERED: ASPIRIN 325 MG ECTAB PO SCH (09:00)
[2020-04-06] MEDS ORDERED: allopurinoL 100 MG TAB PO SCH (09:00)
[2020-04-06] MEDS ORDERED: TAMSULOSIN HCL 0.4 MG CAP PO SCH (09:00)
[2020-04-06] MEDS ORDERED: PANTOprazole 40 MG TAB PO SCH (09:00)
[2020-04-06] MEDS ORDERED: FINASTERIDE 5 MG TAB PO SCH (09:00)
[2020-04-06] MEDS ORDERED: ASPIRIN 81 MG ECTAB PO SCH (09:00)
[2020-04-06] MEDS ORDERED: ATORVASTATIN 40 MG TAB PO SCH (09:00)
--- NOTE | 2020-04-06 09:19 | Cardiology Progress Note ---
Date of Service April 06, 2020 Assessment & Plan (1) CAD (coronary artery disease): -Moderate nonobstructive proximal LAD disease 2. Suspected pericarditis 3. Preserved LV function 4. Chronic renal insufficiency, post nephrectomy 5. Hypertension 6. History of paroxysmal atrial tachycardia Patient has been chest pain-free. Troponin negative x2. Patient presenting chest symptoms not secondary to ACS. No evidence of PE or dissection on CTA. Relatively diffuse ST elevations and description of chest pain potentially consistent with pericarditis. No clear viral prodrome. Discontinue heparin infusion We will repeat ECG today, check ESR, CRP Plan to treat as pericarditis. Started on colchicine yesterday. Continue full dose aspirin Continue current statin, LDL excellent Continue metoprolol, resume home losartan. Up walking halls today. If remains chest pain-free okay from a cardiac standpoint for discharge later today with follow-up with me in 1 month. Admission and Anticipated Discharge Date Admission Date: April 05, 2020 Subjective Patient feeling well today. Chest/back pain is resolved. Able to take a deep breath without symptoms. Slept well overnight. No other new concerns today. Telemetry reviewedfew blocked PACs, PVCs. No events Review of Systems Review of Systems: All systems reviewed & are unremarkable except as noted in HPI & below Physical Exam Physical Exam: General: Comfortable, no acute distress HEENT: Sclerae anicteric, mucous membranes moist Lungs: Clear to auscultation bilaterally, no rhonchi or wheezes Cardiac: Regular rate and rhythm, 1 out of 6 systolic ejection murmur, no rubs. Abdomen: Soft, nontender, nondistended, positive bowel sounds. Extremities: Warm, well perfused, no edema. Reticular veins. Right radial artery access site with no hematoma. Distal pulse and sensation intact. Skin: Bruising at radial artery access site, prior IV sites, right upper back. Neuro: Nonfocal Psych: Alert orient x3, normal affect and mood Results & Data ([facility]) Vital Signs (Past 12 Hours) Vital Signs Temp Pulse Resp BP Pulse Ox 04/06/20 07:17 98.1 F 72 19 131/83 92 04/06/20 04:00 97.9 F 74 18 121/75 93 04/05/20 23:56 98.1 F 70 18 126/80 94 PG Care Time/CCT Total # of Minutes Spent Total Time Spent with Patient: Total time spent is greater than 50% in coordination of care (as documented) at patient's floor/unit and/or counseling patient: Coding Level of Care Code 74450 Subseq Hosp Care Lvl 3 Diagnoses CAD (coronary artery disease) I25.10
[2020-04-06] MEDS: COLCHICINE 0.6 MG TAB PO SCH (09:48)
[2020-04-06] MEDS: HEPARIN SODIUM/DEXTROSE 25,000 UNITS/500 ML BAG IV SCH (10:29)
[2020-04-06 11:07] VITALS: BP 127/78; O2SAT 94
--- NOTE | 2020-04-06 13:13 | Hospitalist Progress Note ---
Date of Service April 06, 2020 Assessment & Plan (1) S/P cardiac catheterization: (2) CAD (coronary artery disease): Patient is a 85 yr old male with H/O Paroxysmal atrial tachycardia, HTN, CKD III, prediabetes, h/o renal cancer s/p nephrectomy, GERD, BPH and other medical problems listed below who was transferred from [facility] to [facility] for suspected inferior STEMI. Chest Pain Moderate nonobstructive proximal LAD disease Suspected pericarditis S/P Cardiac Cath:Moderate non-obstructive coronary artery disease. 50-60% proximal LAD (by IVUS). Normal intracardiac filling pressure Troponin: Negative ESR:17 CRP:6.07 --Chest CTA:No acute intrathoracic findings. No evidence of thoracic aortic aneurysm or dissection. No evidence of acute pulmonary embolism. 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 Abnormal septal motion consistent with conduction abnormality. Normal RV size and function. Aortic valve sclerosis. Mild aortic regurgitation. Trivial pericardial effusion. No prior studies for comparison. IV heparin discontinued Started on colchicine Continue full dose aspirin, statin Continue metoprolol, losartan Needs follow-up with cardiology upon discharge in 4 weeks Appreciate cardiology input (3) CKD (chronic kidney disease), stage III: Baseline ~1.4 Ct at baseline Monitor renal function Avoid nephrotoxic agents as able (4) Paroxysmal atrial tachycardia: Continue metoprolol (5) HTN (hypertension): Continue metoprolol (6) AAA (abdominal aortic aneurysm): Per CT abdomen/pelvis from the summer, AAA 4.7 cm (7) GERD (gastroesophageal reflux disease): Continue PPI (8) BPH (benign prostatic hyperplasia): Continue tamsulosin and finasteride DVT Px: Received IV heparin Code status: DNR/DNI Disposition Plan to discharge home today Admission and Anticipated Discharge Date Admission Date: April 05, 2020 Subjective Patient is seen and examined at bedside States feeling much better today Chest pain completely resolved Denies dyspnea, dizziness, nausea, abdominal pain Offers no other complaints Plan to be discharged home today Review of Systems Review of Systems: All systems reviewed & are unremarkable except as noted in HPI & below Physical Exam Physical Exam: Physical Exam: Vitals signs as noted above General Appearance:Moderately built and nourished, no apparent distress Head: normocephalic, Atraumatic Eyes: normal inspection, EOMI Neck: supple, Trachea midline Respiratory/Chest: Normal breath sounds, CTA Cardiovascular: S1, S2, No murmur Abdomen/GI:Soft, Non tender, Bowel sounds present Extremities/Musculoskelatal:normal inspection, no edema Neurologic/Psych:AAOX3, grossly no focal neurological deficits Skin: normal color, warm Results & Data Results & Data ([facility]) Vital Signs (Past 12 Hours) Vital Signs Temp Pulse Resp BP Pulse Ox 04/06/20 11:01 36.7 C 72 19 127/78 94 04/06/20 07:17 36.7 C 72 19 131/83 92 04/06/20 04:00 36.6 C 74 18 121/75 93 Laboratory Results Short CBC 04/06/20 Range/Units 06:57 WBC 6.97 (4.8-10.8) K/uL Hgb 13.4 L (14.0-18.0) g/dL Hct 39.7 L (42-52) % Plt Count 160 (130-400) K/uL BMP 04/05/20 04/06/20 12:40 06:57 Sodium 138 139 Potassium 4.4 4.0 Chloride 109 H 110 H Carbon Dioxide 22 23 BUN 20 H 20 H Creatinine 1.49 H 1.44 H Glucose 114 H 107 H Calcium 10.1 8.8 Cardiac Enzymes 04/05/20 04/05/20 04/06/20 Range/Units 12:40 19:48 01:23 Troponin I < 0.015 < 0.015 < 0.015 (0-0.045) ng/ml Liver Function 04/05/20 Range/Units 12:40 Total Bilirubin 0.7 (0.2-1) mg/dl AST 10 L (15-37) U/L ALT 22 (12-78) U/L Alkaline Phosphatase 127 H (45-117) U/L Albumin 3.7 (3.4-5.0) gm/dl
--- NOTE | 2020-04-06 13:41 | Discharge Summary ---
Date of Service April 06, 2020 Admission HPI Per Admitting Provider This is an 85yo M with a PMH of paroxysmal atrial tachycardia, HTN, CKD III, prediabetes, h/o renal cancer s/p nephrectomy, GERD, BPH and other medical problems listed below who was transferred from [facility] to [facility] for STEMI. Patient had been having chest pain since yesterday morning that was intermittent with associated shortness of breath and pre-syncope. Pain persisted overnight and therefore contacted EMS. EKG at [facility] showed sinus rhythm with inferior ST elevations. 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 Patient was transferred to PCU for continued monitoring. Around time of evaluation in 239-2 at 1500, chest discomfort had returned with pain between shoulder blades and associated shortness of breath and rigors. Received SL nitro x 1 and morphine. Repeat EKG with normal sinus, felt significantly improved after medication. Still has mild chest discomfort with deep inspiration. Was evaluated at bedside by Dr. Hare at this time as well. Going for CTA chest to rule out dissection. Admission Exam Per Admitting Provider Physical Exam Physical Exam: General Appearance: vitals as above, lying in bed, initially in distress from CP but improved after ntg, conversing normally Head: normocephalic, atraumatic Eyes: normal inspection, PERRL, conjunctivae normal, anicteric sclerae ENT: external ear and nose normal, oropharynx normal, wearing oxymask Neck: normal visual inspection, trachea midline, no thyromegaly Respiratory: normal respiratory effort, lungs clear to auscultation, no wheeze, rales, rhonchi. No accessory muscle use Cardiovascular: regular rate, rhythm, no murmur appreciated, normal peripheral pulses, no BLE edema. Vessels: no JVD Chest: normal inspection of chest Abdomen/GI: normal bowel sounds, soft, nontender, no hepatosplenomegaly Extremities/Musculoskeletal: no cyanosis or clubbing, extremities motor strength 5/5. + Radial band in place Neurologic: PERRL, EOMI, accommodation nl, no face palsy, no dysarthria, CN's II-XI intact bilaterally and moves all extremities Psychiatric: A+Ox3, euthymic affect Skin: no rashes, normal color, warm/dry Principal Diagnosis Chest Pain Moderate nonobstructive proximal LAD disease Suspected pericarditis Discharge Data Allergies Allergy/AdvReac Type Severity Reaction Status Date / Time Cipro Allergy Unknown LIPS Verified 04/18/17 11:10 ITCHING/TINGLING Consultations 04/05/20 12:47 ED Decision to Admit Stat 04/05/20 14:20 Consult Cardiology Routine Procedures Performed Operation Date: 04/05/20 12:20 Actual Procedures p Cath, Left with Cors and Vent - Jame Hare MD s Cineradiography w/Routine Exam - Jame Hare MD s IVUS Coronary Single Vessel - Jame Hare MD --Chest CTA:No acute intrathoracic findings. No evidence of thoracic aortic aneurysm or dissection. No evidence of acute pulmonary embolism. 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 Abnormal septal motion consistent with conduction abnormality. Normal RV size and function. Aortic valve sclerosis. Mild aortic regurgitation. Trivial pericardial effusion. No prior studies for comparison. Ordered Studies 04/05/20 12:23 CL Cath Imgs for PACS use only Stat 04/05/20 13:44 CL IVUS Coronary Single Vessel Routine 04/05/20 15:22 CT angio chest dissec wo/w con Stat Hospital Course (1) S/P cardiac catheterization: (2) CAD (coronary artery disease): Patient is a 85 yr old male with H/O Paroxysmal atrial tachycardia, HTN, CKD III, prediabetes, h/o renal cancer s/p nephrectomy, GERD, BPH and other medical problems listed below who was transferred from [facility] to [facility] for suspected inferior STEMI. Chest Pain Moderate nonobstructive proximal LAD disease Suspected pericarditis S/P Cardiac Cath:Moderate non-obstructive coronary artery disease. 50-60% proximal LAD (by IVUS). Normal intracardiac filling pressure Troponin: Negative ESR:17 CRP:6.07 --Chest CTA:No acute intrathoracic findings. No evidence of thoracic aortic aneurysm or dissection. No evidence of acute pulmonary embolism. 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 Abnormal septal motion consistent with conduction abnormality. Normal RV size and function. Aortic valve sclerosis. Mild aortic regurgitation. Trivial pericardial effusion. No prior studies for comparison. IV heparin discontinued Started on colchicine Continue full dose aspirin, statin Continue metoprolol, losartan Needs follow-up with cardiology upon discharge in 4 weeks Appreciate cardiology input (3) CKD (chronic kidney disease), stage III: Baseline ~1.4 Ct at baseline Monitor renal function Avoid nephrotoxic agents as able (4) Paroxysmal atrial tachycardia: Continue metoprolol (5) HTN (hypertension): Continue metoprolol (6) AAA (abdominal aortic aneurysm): Per CT abdomen/pelvis from the summer, AAA 4.7 cm (7) GERD (gastroesophageal reflux disease): Continue PPI (8) BPH (benign prostatic hyperplasia): Continue tamsulosin and finasteride DVT Px: Received IV heparin Code status: DNR/DNI Disposition Plan to discharge home today Total Time Total Time Spent Total Time Spent (In Minutes): 35 minutes Total Time Includes: Examination of the Patient, Discharge Planning, Medication Reconciliation, Communication With Other Providers and Other Discharge Plan Discharge Items Patient Disposition: Home - Self-Care Reason For Visit: CHEST PAIN Discharge Diagnosis: Chest Pain Moderate nonobstructive proximal LAD disease Suspected pericarditis Activity: Per Instructions section Exercise/Sports: Gradually increase as tolerated Non-emergency contact: Primary Care Provider and Reconsignment Clerk Call non-emergency contact if: you have any medication questions, your symptoms worsen, your pain is not controlled, your pain is worsening, your pain is unusual for you, your pain is concerning for you and you have a fever Follow-up/Referrals: Jame Hare MD [Physician] - 05/04/20 2:30 pm (Please follow up with Dr. Hare at [facility] on Sunday05/04/2020 at 2:30 pm. Please arrive to the office 15 minutes early for your appointment. If you are unable to keep this appointment, please call the office to reschedule at [phone].) Sergei Trujillo MD [Primary Care Provider] - Diet: Heart Healthy Add Attending Provider Instructions: Follow up with your Primary care physician Jodi Arriaza PA-C on Apr 09, 2020 at 11:20 am Follow up with your information security Dr. Roman Hare in 4 weeks as recommended by your information security. Please call for appointment Continue taking colchicine as prescribed. Further recommendations as per your information security Seek immediate medical attention if your symptoms reoccur or worsen Pending Studies at Discharge: No Stand-Alone Forms: My [facility], Smoking Cessation Medications and DC Order Prescriptions: New aspirin [Ecotrin] 325 mg Tablet,Delayed Release (Dr/Ec) 325 mg PO QAM Qty: 30 RF: 1 colchicine [Colcrys] 0.6 mg Tablet 0.6 mg PO BID Qty: 60 RF: 0 metoprolol tartrate 25 mg Tablet 25 mg PO BID Qty: 60 RF: 0 Continued allopurinol 100 mg Tablet 100 mg PO DAILY RF: 0 pantoprazole 20 mg Tablet,Delayed Release (Dr/Ec) 20 mg PO DAILY RF: 0 tamsulosin 0.4 mg Capsule 0.4 mg PO DAILY RF: 0 albuterol sulfate 90 mcg/actuation HFA aerosol inhaler 2 inh INHALATION QID PRN (Reason: Shortness Of Breath Or Wheezing) RF: 0 fluticasone propionate 50 mcg/actuation [place],Suspension 1 spray INTRANASAL BID RF: 0 finasteride 5 mg tablet 5 mg PO DAILY RF: 0 Artificial Tears (cmc) 1 % Drops 1 drp OPHTHALMIC (EYE) TID PRN (Reason: Dry Eyes) RF: 0 losartan 25 mg tablet 25 mg PO DAILY RF: 0 Changed atorvastatin 20 mg tablet 40 mg PO HS Qty: 60 RF: 0 Discharge Orders: Discharge Order (Routine); Ordered 04/06/20 Ordered By: Camacho Richards Admission Data Admit Date/Time: 04/05/20 13:41 Attending Provider: Jame Hare Admit Provider: Jame Hare Primary Care Provider: Sergei Trujillo Other Providers: Camacho Richards Other Interventions: Discharge Summary Assessment (RN) Last Done: 04/06/20 14:04
--- NOTE | 2020-04-06 22:20 | Electrocardiogram Report ---
Test Reason : Blood Pressure : / mmHG Vent. Rate : 072 BPM Atrial Rate : 072 BPM P-R Int : 180 ms QRS Dur : 084 ms QT Int : 366 ms P-R-T Axes : 078 028 078 degrees QTc Int : 400 ms Poor data quality, interpretation may be adversely affected Normal sinus rhythm ST elevation, consider inferior injury When compared with ECG of 05-APR-2020 12:30, No significant change was found Confirmed by Steven De La Fuente ([id number]) on 04/06/2020 10:19:36 PM Referred By: REFERRED SELF Confirmed By:Steven De La Fuente
--- NOTE | 2020-04-07 06:22 | Electrocardiogram Report ---
Test Reason : Blood Pressure : / mmHG Vent. Rate : 075 BPM Atrial Rate : 075 BPM P-R Int : 260 ms QRS Dur : 088 ms QT Int : 350 ms P-R-T Axes : 066 030 067 degrees QTc Int : 390 ms Sinus rhythm with 1st degree A-V block ST elevation, consider inferior injury Abnormal ECG When compared with ECG of 05-APR-2020 15:12, DE interval has increased Confirmed by Steven De La Fuente ([id number]) on 04/07/2020 6:21:50 AM Referred By: REFERRED SELF Confirmed By:Steven De La Fuente
== END 2020-04-06 14:17 | disposition home or self-care (01) ==
LOC: ED 12:27 → CC 12:43 → 2S 12:43
DX: Z88.1 Allergy status to other antibiotic agents; Z79.82 Long term (current) use of aspirin; N40.0 Benign prostatic hyperplasia without lower urinary tract symptoms; Z79.899 Other long term (current) drug therapy; N18.30 Chronic kidney disease, stage 3 unspecified; I47.1 Supraventricular tachycardia; K21.9 Gastro-esophageal reflux disease without esophagitis; I25.10 Atherosclerotic heart disease of native coronary artery without angina pectoris; I12.9 Hypertensive chronic kidney disease with stage 1 through stage 4 chronic kidney disease, or unspecified chronic kidney disease; I71.4 Abdominal aortic aneurysm, without rupture; I21.19 ST elevation (STEMI) myocardial infarction involving other coronary artery of inferior wall; Z87.891 Personal history of nicotine dependence